=== PATIENT | female | born 1950 | race Caucasian/White ===

== ENCOUNTER 2022-10-29 09:43 | Emergency (ER) | payer MEDICARE, OTHER, SELFPAY ==
--- NOTE | 2022-10-29 09:52 | ED.FEMALEGU ---
HPI - Female Genitourinary General Chief complaint: Urogenital-Female Stated complaint: painful urination,back hurts Time Seen by Provider: 10/29/22 09:52 Source: patient and RN notes reviewed History of Present Illness HPI Narrative: Patient is a 72-year-old female presents to urgent care with complaints of dysuria, urinary frequency, urgency, retention and hematuria. Patient states symptoms started last and she developed flank pain yesterday. Patient states she has had time to be seen due to her 's recent stroke last week. Patient denies any fevers, nausea, vomiting or abdominal discomfort. States that she has not taken anything [id number] for her symptoms. No other acute complaints. No acute distress noted. Patient aware of the plan of care. Some parts of this dictation were generated by voice recognition software and may contain typographical and/or grammatical inaccuracies. Related Data Home Medications Medication Instructions Recorded Confirmed alprazolam 2 mg tablet 2 mg PO BID PRN Anxiety 10/29/22 10/29/22 glipizide 5 mg tablet 5 mg PO DAILY 10/29/22 10/29/22 levothyroxine 88 mcg tablet 88 mcg PO DAILY 10/29/22 10/29/22 metformin 500 mg tablet 2,000 mg PO DAILY 10/29/22 10/29/22 omeprazole 40 mg capsule,delayed 40 mg PO DAILY 10/29/22 10/29/22 release sertraline 100 mg tablet 100 mg PO DAILY 10/29/22 10/29/22 Allergies Allergy/AdvReac Type Severity Reaction Status Date / Time aspirin Allergy Intermediate Rash Verified 10/29/22 10:12 codeine Allergy Intermediate Rash Verified 10/29/22 10:12 erythromycin base Allergy Intermediate Rash Verified 10/29/22 10:12 hydromorphone [Dilaudid] Allergy Intermediate Rash Verified 10/29/22 10:12 morphine Allergy Intermediate Rash Verified 10/29/22 10:12 sulfur dioxide Allergy Intermediate Rash Verified 10/29/22 10:12 tetanus immune globulin Allergy Intermediate Rash Verified 10/29/22 10:12 tetanus toxoid, adsorbed Allergy Intermediate Rash Verified 10/29/22 10:12 Review of Systems Review of Systems: CONSTITUTIONAL: Denies fever, chills, or sweats. EYES: Denies visual changes, redness, or discharge. ENT: Denies rhinorrhea, congestion, sore throat, or otalgia. CARDIOVASCULAR: Denies chest pain, palpitations, or edema. RESPIRATORY: Denies cough or dyspnea. GASTROINTESTINAL: Denies abdominal pain, nausea, vomiting, or diarrhea. GENITOURINARY: Reports dysuria, urgency, frequency, retention, hematuria and flank pain SKIN: Denies rash or itching. MUSCULOSKELETAL: Denies back pain, joint pain, or myalgia. NEUROLOGIC: Denies headache, numbness, or weakness. All other systems reviewed are negative, except as documented in HPI. [facility] Social History Social History Smoking status: Never smoker Comments At the time of my signature, I reviewed and agree with the nursing past medical, surgical, social, and family history. There is no relevant family history pertinent to the patient complaint. Exam Narrative: GENERAL: This is a well-nourished, well-developed patient, in no apparent distress. HEAD: normocephalic, atraumatic. EYES: PERRL. Sclera clear/white. Vision is grossly intact. EARS: External ears normal NOSE: External nose normal with no obvious nasal discharge, nares without redness, no rhinorrhea. THROAT: Mucous membranes moist NECK: Neck supple GASTROINTESTINAL: Abdomen soft, non-tender, nondistended. Bowel sounds are active. No hepato-splenomegaly, or palpable masses. No guarding. SKIN: warm, intact with no suspicious lesions or rash, good texture and turgor. NEURO: awake, alert, and oriented to person, place and time. There were no obvious focal neurologic abnormalities. EXTREMITIES: No clubbing, cyanosis, or edema. BACK: Nontender without deformity or crepitance. No flank tenderness. Course Course Level of Care: Express Care Visit Vital Signs Vital signs: Vital Signs Temperature 97.6 F 10/29/22 10:04 Pulse Rate 80 06
[2022-10-29 10:04] VITALS: BP 131/60; PULSE 80; RESP 20; TEMP 36.4; O2SAT 100
== END 2022-10-29 10:36 | disposition home or self-care (01) ==
PROVIDERS: Emergency Provider Nurse Practitioner Family; PCP Physician Assistant
DX: N39.0 Urinary tract infection, site not specified (principal); E11.9 Type 2 diabetes mellitus without complications; E03.9 Hypothyroidism, unspecified; F41.9 Anxiety disorder, unspecified; F32.A Depression, unspecified
CPT/HCPCS: 81003; 87086; 87088; 99213; G0463